=== PATIENT | male | born 1985 | race Caucasian/White ===

== ENCOUNTER 2020-03-22 10:57 | Emergency (ER) | payer SELFPAY ==
[2020-03-22 11:05] VITALS: BP 126/81; PULSE 129; RESP 20; TEMP 37.2; O2SAT 99
[2020-03-22 11:21] VITALS: BP 126/81; PULSE 129; RESP 20; TEMP 37.2; O2SAT 99
--- NOTE | 2020-03-22 11:36 | ED.URI ---
HPI - URI/Sore Throat General Chief Complaint: Upper Respiratory Infection Stated Complaint: Sore Throat Time Seen by Provider: 03/22/20 11:16 Source: patient and RN notes reviewed Mode of arrival: ambulatory Limitations: no limitations History of Present Illness HPI Narrative: Patient presents today complaining of a 2-day history of sore throat, sweats since last night. States he cannot swallow well and sometimes has to force himself to swallow fluids, and sometimes has to spit out his secretions because he cannot get them down. Denies shortness of breath, but does report some chest pressure. Denies cough, congestion, rhinorrhea, ear pain, nausea, vomiting, known fever. Currently rates his pain 02/22 and has been using throat spray without relief. MD elicited complaint: sore throat Related Data Home Medications Medication Instructions Recorded Confirmed No Home Medications 03/22/20 03/22/20 Allergies Allergy/AdvReac Type Severity Reaction Status Date / Time No Known Allergies Allergy Verified 03/22/20 11:19 Review of Systems Review of Systems: Narrative: CONSTITUTIONAL: Denies body aches, fever, chills. +sweats EYES: Denies visual changes, redness, or discharge. ENT: Denies rhinorrhea, congestion, or otalgia. + Sore throat, difficulty swallowing CARDIOVASCULAR: Denies palpitations, or edema. +occasional chest pressure RESPIRATORY: Denies cough or dyspnea. GASTROINTESTINAL: Denies abdominal pain, nausea, vomiting, or diarrhea. GENITOURINARY: Denies dysuria or hematuria. SKIN: Denies rash, itching, or wounds. MUSCULOSKELETAL: Denies back pain, joint pain, or myalgia. NEUROLOGIC: Denies headache, numbness, tingling, or weakness. PSYCH: Denies depression or anxiety. PMFSH Comments At time of signature, I have reviewed and agree with nursing past medical, surgical, social and family history unless otherwise noted. Please see nursing chart for further information. There is no relevant family history pertinent to the presenting complaint Exam Narrative: Exam Narrative: GENERAL: Mildly ill-appearing, well-nourished, and in no acute distress. HEAD: Normocephalic, atraumatic. EYES: EOMI. No redness or drainage. Conjunctivae normal. ENT: Mucous membranes pink and moist. Nares clear. No rhinorrhea. TMs normal bilaterally. + Tonsils 4+ with white exudate and severely erythematous. Patient has hot potato voice. Frequent throat clearing. It appears that the uvula remains midline. NECK: Normal AROM. Supple. Bilateral anterior cervical chain lymphadenopathy. CHEST: No respiratory distress. Clear to auscultation. HEART: Regular rate and rhythm. No murmur appreciated. Normal peripheral pulses. EXTREMITIES: Normal range of motion. No edema. SKIN: Warm, dry, no rash. Capillary refill normal. Normal skin turgor. NEURO: No focal deficits. Alert and oriented x3. Gait steady. PSYCH: Normal affect. No signs of depression or anxiety. Course Course Emergency Course: Rapid strep is negative. I would like to send patient to the ER due to difficulty swallowing and severe pain, to rule out peritonsillar abscess, retropharyngeal abscess. Vital Signs Vital signs: Vital Signs Temperature 99 F 03/22/20 11:05 Pulse Rate 129 H 03/22/20 11:05 Respiratory Rate 20 03/22/20 11:05 Blood Pressure 126/81 03/22/20 11:05 Pulse Oximetry 99 03/22/20 11:05 Temperature 99 F 03/22/20 11:21 Pulse Rate 129 H 03/22/20 11:21 Respiratory Rate 20 03/22/20 11:21 Blood Pressure 126/81 03/22/20 11:21 Pulse Oximetry 99 03/22/20 11:21 Reviewed Transfer Transfered to: [facility] Transportation: Other (Personal vehicle) Transfer rationale: Sore throat, difficulty swallowing, rule out abscess Accepting physician: Christian YOU - URI/Sore Throat Differential Diagnosis Differential diagnosis: Likely upper respiratory infection, viral infection, pharyngitis and other (Tonsillitis, strep throat, retropharynge
== END 2020-03-22 11:50 | disposition short-term general hospital (02) ==
PROVIDERS: Emergency Provider Nurse Practitioner
DX: J03.90 Acute tonsillitis, unspecified (principal); R13.10 Dysphagia, unspecified
CPT/HCPCS: 87081; 87880; 99213; G0463